=== PATIENT | male | born 1985 | race Caucasian/White ===

== ENCOUNTER 2016-11-13 11:00 | Inpatient (IN) | payer OTHER ==
--- NOTE | ~2016-11-13 | PA ---
Unit #: [id number] #: [id number] Patient: BIJU CABRERA [id number] [place] [address] [id number] MR#: [id number] NAME: BIJU CABRERA. ROOM: P21 Age: 31 Sex: M Admission Date: 11/13/2016 : 1985 Date of Assessment: 11/14/2016 Attending Physician: Reese Trejo M.D. Admitting Physician: Reese Trejo M.D. Primary Care Physician: Primary Care Physician No PSYCHIATRIC ASSESSMENT IDENTIFYING INFORMATION The patient is a 31-year-old male admitted to the [address] [place] [address] Unit with a history of opioid dependence. CHIEF COMPLAINT None given. INFORMANT(S) Patient, reliability is fair. Information is mainly obtained from the chart. HISTORY OF PRESENT ILLNESS The patient is a 31-year-old male brought in by his [id number], waiting to be detoxed from opiates. The patient states that he has been taking 20 mg daily of Lortab for several years. He denies any history of intravenous drug use. The patient was recently fired from his job and is feeling that his life is spiraling out of control since he has no steady income at this point. The patient's COWS score on admission was 15. When seen today, the patient is sleeping soundly, and multiple attempts to arouse him are unsuccessful. PAST PSYCHIATRIC HISTORY None. PAST MEDICAL HISTORY Noncontributory. MEDICATIONS Iodine, shell fish. FAMILY HISTORY Noncontributory. SOCIAL HISTORY The patient is an [employer] . He is presently employed. His substance use history is prescribed previously. MENTAL STATUS EXAMINATION Examination at this time reveals the patient to be a soundly sleeping male who is in no apparent physical distress. Multiple attempts to arouse the patient were unsuccessful. ASSETS AND LIABILITIES Unit #: [id number] #: [id number] Patient: BIJU CABRERA The patient's assets: Supportive family. Liabilities: Lack of resources, unemployment. DIAGNOSTIC IMPRESSION Opioid use disorder. TREATMENT PLAN The patient remains hospitalized for safety and stabilization. Routine detoxification protocol for opioids has been initiated. ESTIMATED LENGTH OF STAY 3 to 5 days. Dictated by... Reese Trejo M.D. Kenisha TD: 11/14/2016 14:46 JOB #: [id number] PSYCHIATRIC ASSESSMENT Page 1 of 1 X Reese Trejo MD PSYCHIATRIC ASSESSMENT
--- NOTE | ~2016-11-13 | HP ---
Unit #: [id number] #: [id number] Patient: BIJU CABRERA [id number] [place] [address] [id number] MR#: [id number] NAME: BIJU CABRERA. ROOM: [facility] Age: 31 Sex: M Admission Date: 11/13/2016 : 1985 Attending Physician: Reese Trejo M.D. Admitting Physician: Reese Trejo M.D. Primary Care Physician: Primary Care Physician No HISTORY AND PHYSICAL HISTORY OF PRESENT ILLNESS Biju is a 31 year old admitted to [address] [place] [address] because of his drug use. PAST MEDICAL HISTORY 1. History of illicit substance abuse. 2. Asthma. 3. History of genital herpes. PAST SURGICAL HISTORY Nothing reported. ALLERGIES Iodine. SOCIAL HISTORY He does not smoke. Drinks alcohol on occasion. Admits to abusing opioids. FAMILY HISTORY Medically noncontributory. REVIEW OF SYSTEMS CONSTITUTIONAL: No fever or chills. HEENT: Denies any sore throat, ear pain or runny nose. CARDIOVASCULAR: Denies chest pain, irregular heart rhythm or palpitations. CHEST: Denies shortness of breath or cough. No hemoptysis. GASTROINTESTINAL: Denies nausea, vomiting, diarrhea or chronic constipation. ENDOCRINE: Denies history of increased thirst or urination. No recent significant weight loss or gain. GENITOURINARY: Denies dysuria, frequency, or hematuria. SKIN: Denies any rashes. HEMATOLOGIC: Denies history of increased bleeding or bruising. MUSCULOSKELETAL: Denies any hot, swollen joints. No generalized muscle pain. NEUROLOGIC: Denies problems with vision or speech. No frequent, severe headaches. No numbness, tingling or weakness in any extremities. Denies loss of bladder or bowel control. CURRENT MEDICATIONS Detox protocol. PHYSICAL EXAMINATION GENERAL: Alert, well nourished. No apparent distress. Unit #: [id number] #: [id number] Patient: BIJU CABRERA VITAL SIGNS: Blood pressure 120/78, heart rate 80, respirations 16, and temperature 98.6. WEIGHT: 175. HEIGHT: 5 feet 7 inches. SKIN: Warm and dry without rash or lesion. HEENT: Normocephalic. TMs not viewed. Oral and nasal passages clear. Conjunctivae clear. PERRLA. EOMs intact. NECK: Supple without lymphadenopathy or thyromegaly. HEART: Regular rate and rhythm without murmur. LUNGS: Clear. ABDOMEN: Soft, nontender. : Not done. EXTREMITIES: No evidence of cyanosis, clubbing or edema. Moves all without focal deficit. NEUROLOGICAL: Grossly within normal limits. Cranial Nerves: II: Visual alston are intact. III, IV AND : Extraocular movements are intact. Pupils are equal, round and reactive to light. V: Facial sensation is grossly normal. VII: Facial movements and expression are normal. VIII: Auditory acuity grossly intact. IX, X: Uvula is midline. Phonation is normal. XI: Patient shrugs shoulders and turns head normally. XII: Tongue protrudes in the midline. Sensory and Motor Function: Sensory and motor sensation is grossly normal. Motor: moves all extremities well. Coordination: Gait is normal. Deep Tendon Reflexes: Intact. IMPRESSION Psychiatric admission. RECOMMENDATIONS PSYCHIATRIC: Per psychiatrist. MEDICAL: I see no contraindication to participate in this facility's activities. MEDICAL PROGNOSIS Good. MEDICAL CONDITION Stable. Dictated by... Jessica De Guzman P.A.-C. for Soy Strickland/andry TD: 11/14/2016 06:50 JOB #: [id number] Unit #: [id number] #: [id number] Patient: BIJU CABRERA HISTORY AND PHYSICAL Page 1 of 1 X Jessica De Guzman HISTORY AND PHYSICAL
--- NOTE | ~2016-11-13 | DS ---
Unit #: [id number] #: [id number] Patient: BIJU CABRERA [id number] [facility] [address] [place] [address] [id number] MR#: [id number] NAME: BIJU CABRERA. ROOM: [facility] Age: 31 Sex: M Admission Date: 11/13/2016 : 1985 Discharge Date: 11/15/2016 Attending Physician: Reese Trejo M.D. Primary Care Physician: Primary Care Physician No DISCHARGE SUMMARY REASON FOR ADMISSION The patient is a 31-year-old male, admitted with a history of Lortab abuse. HOSPITAL COURSE The patient was admitted to the [address] [place] [address] unit and placed on routine detoxification protocol for opioids. His COWS score on admission was 15. The patient exhibited little in the way of signs or symptoms of withdrawal. By 11/15/2016, the patient was not participating to any significant degree within the therapeutic milieu, and was reporting no suicidal ideation. He exhibited no signs or symptoms of withdrawal, and was not felt to meet criteria for further hospitalization on an inpatient basis. He was agreeable with plan for followup in the intensive outpatient program provided by this facility. Discharge was ordered. FINAL DIAGNOSIS Opioid use disorder. DISPOSITION ON DISCHARGE The patient is discharged on no psychotropic or other medications. FOLLOWUP Followup will take place through the auspices of the chemical dependency intensive outpatient program provided by this facility. PROGNOSIS The patient's prognosis is considered fair. Dictated by... Reese Trejo M.D. CB/lorne TD: 11/15/2016 12:40 JOB #: [id number] Unit #: [id number] #: [id number] Patient: BIJU CABRERA DISCHARGE SUMMARY Page 1 of 1 X Reese Trejo MD X DISCHARGE SUMMARY
[~2016-11-13 11:00] MED LIST: ACYCLOVIR PO; ACYCLOVIR400 MG PO; ALBUTEROL17 GM INH; LORTAB 5/500 TA1 TA1 PO; MEDROL DOSEPAK4 MG DOB; PHENERGAN PO; PHENERGAN25 MG PO; PREDNISONE; PRILOSEC20 MG PO; ROBITUSSIN15 MG/5 ML; TYLENOL325 M1 PO; ZITHROMAX1 G/PKT PO
[2016-11-14 09:45] LABS: URINE APPEARANCE CLEAR; URINE BILIRUBIN NEG (NEG); URINE BLOOD NEG (NEG); URINE COLOR DK YELLOW; URINE GLUCOSE NEG (NEG); URINE KETONE TRACE (NEG); URINE LEUKOCYTE ESTERASE TRACE (NEG); URINE NITRATE NEG (NEG); URINE PH 6.5 (5-8); URINE PROTEIN 1+ (NEG); URINE SPECIFIC GRAVITY 1.022 (1.003-1.035)
[2016-11-14 09:48] LABS: BASOPHIL% 0.2 % (0-2.5); HEMATOCRIT 43.9 % (38.0-50.0); HEMOGLOBIN 14.7 gm/dL (13.0-16.0); LYMPHOCYTE# 1.7 X10e3 (1.0-3.5); LYMPHOCYTE% 12.8 % (17.0-45.0); MEAN CELL VOLUME 90.3 FL (83-96); MEAN CORPUSCULAR HEMOGLOBIN 30.3 PG (28-34); MEAN CORPUSCULAR HGB CONC 33.6 g/dL (30-36); MEAN PLATELET VOLUME 7.7 FL (6.5-11.5); MONOCYTE# 0.8 X10e3 (0-1.0); MONOCYTE% 6.1 % (3.0-12.0); NEUTROPHIL# 10.9 X10e3 (1.5-7.1); NEUTROPHIL% 80.9 % (40-75); PLATELET COUNT 364 X10e3 (140-420); RED BLOOD COUNT 4.86 X10e (3.90-5.60); RED CELL DISTRIBUTION WIDTH 13.4 % (11.0-15.5); WHITE BLOOD COUNT 13.4 X10e3 (4.0-10.5)
[2016-11-14 09:52] LABS: URBCS1 AUWI 0-2 /[HPF] (0-2); URINE BACTERIA AUWI NEG (NEGATIVE); URINE SQUAMOUS EPITHELIAL CELL OCC /[HPF]
[2016-11-14 10:01] LABS: DIFF IND NO
[2016-11-14 10:27] LABS: ALBUMIN SERUM 4.2 g/dL (3.5-5.0); BILIRUBIN,TOTAL 1.4 mg/dL (0.2-2.0); BUN/CREATININE RATIO 22.22; CALCIUM SERUM 9.7 mg/dL (8.4-10.2); CREATININE SERUM 0.9 mg/dL (0.6-1.4); GLOM FILT RATE Estimated 113.4 mL/min (>60); POTASSIUM 3.5 mmol/L (3.5-5.1); PROTEIN TOTAL SERUM 7.4 g/dL (6.0-8.3)
[2016-11-14 11:07] LABS: AMPHETAMINE NEG (NEG); BARBITURATES NEG (NEG); BENZODIAZEPINES POS (NEG); COCAINE NEG (NEG); MARIJUANA NEG (NEG); OPIATES NEG (NEG); TRICYCLIC ANTIDEPRESSANTS NEG (NEG); U METHADONE NEG (NEG)
== END 2016-11-15 12:30 | DRG 897 ==
LOC: P2S 13:19
PROVIDERS: Specialist
PROC: HZ2ZZZZ Detoxification Services for Substance Abuse Treatment (ICD-10-PCS; principal; 2016-11-13)
DX: F11.20 Opioid dependence, uncomplicated (principal); J45.909 Unspecified asthma, uncomplicated
CPT/HCPCS: 80053; 80307; 81003; 85025; 86592; J2550